=== PATIENT | female | born 1955 | race Caucasian/White ===

== ENCOUNTER 2017-04-09 11:05 | Emergency (ER) | payer BC ==
[~2017-04-09] VITALS: Ht 177.8 cm; Wt 79.2 kg
[2017-04-09 11:09] VITALS: BP 113/71
== END 2017-04-09 13:04 | disposition home or self-care (01) ==
LOC: ED 12:58
DX: S63.501A Unspecified sprain of right wrist, initial encounter (principal); W01.0XXA Fall on same level from slipping, tripping and stumbling without subsequent striking against object, initial encounter; Y93.89 Activity, other specified; Y92.89 Other specified places as the place of occurrence of the external cause; Y99.8 Other external cause status
CPT/HCPCS: 29125